=== PATIENT | male | born 1960 | race Caucasian/White ===

== ENCOUNTER 2022-07-13 16:11 | Emergency (ER) | payer OTHER, SELFPAY ==
[2022-07-13 16:53] VITALS: BP 228/101; RESP 18; TEMP 37.1; O2SAT 98; BMI 37.3
--- NOTE | 2022-07-13 17:26 | ED_ITS ---
HPI - Arrhythmia/Palpitations General Chief Complaint: Arrhythmia/Palpitations Stated Complaint: PVC's Time Seen by Provider: 07/13/22 17:07 History of Present Illness HPI narrative: 62-year-old man presenting to the emergency department in with concern of PVCs. Particularly when he lays down at night the last couple of nights it has felt increasingly heavy pulses into his head. No actual chest pain or shortness of breath. No lightheadedness. No cough cold symptoms no fever. Underlying history of PVCs for a long time but these are just more now, started to notice more over the last week or 2. Health history otherwise includes a history of brain surgery for a tumor. He had been seizure-free and off medications for years until this last April. Was started on Keppra but due to orneriness and other intolerance is being transitioned to lamotrigine; currently on both m edications for taper off Keppra and on to lamotrigine. Is not on any rate control medications. Only other medication is mirtazapine primarily for sleep believe. He has historically discontinued caffeine ingestion. 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 Last echo he thinks was last February. Pressures which he tends to measure on the forearm as does not typically read in the upper arm he says, at home were 180s over 120s. And pulse was reading a little over 40. Related Data Previous Rx's Medication Instructions Recorded metoprolol succinate 50 mg 50 mg PO DAILY #30 tabs 07/13/22 tablet,extended release 24 hr Allergies Allergy/AdvReac Type Severity Reaction Status Date / Time gluten Allergy Unknown Verified 07/13/22 16:56 onion Allergy Unknown Verified 07/13/22 16:56 Sulfa (Sulfonamide AdvReac Severe Anaphylaxis Verified 07/13/22 16:56 Antibiotics) Review of Systems Status of ROS: Reports: 10 or more systems reviewed and unremarkable except as noted in History and below Exam Narrative: Exam Narrative: Pleasant. NAD. Large tall man. Calm. Speaks in a slow and controlled manner. Breathing easily. Skin is warm and dry. No extremity edema. Well perfused. Lungs clear. Heart auscultates and palpates for between 30-40 per I think. Cranial nerves 2-12 look to be intact. Const: Vital Signs, click to edit/add: Vital Signs - 24 hr 07/13/22 16:53 07/13/22 17:48 07/13/22 18:00 Temperature 98.7 F Respiratory Rate 18 Blood Pressure [Ri ght Forearm] 228/101 H 205/101 H Pulse Oximetry 98 98 Oxygen Delivery Me thod Room Air 07/13/22 18:33 Temperature Respiratory Rate Blood Pressure [Ri ght Forearm] 187/120 H Pulse Oximetry Oxygen Delivery Me thod Documenting provider has reviewed patient's vital signs: yes Course Vital Signs Vital signs: Initial Vital Signs Temperature 98.7 F 07/13/22 16:53 Temperature Source Temporal Artery Scan 07/13/22 16:53 Respiratory Rate 18 07/13/22 16:53 Blood Pressure 228/101 H 07/13/22 16:53 Blood Pressure Mean 143 07/13/22 16:53 Blood Pressure Position Supine 07/13/22 16:53 Pulse Oximetry 98 07/13/22 16:53 Oxygen Delivery Method 07/13/22 16:53 Vital Signs Temperature 98.7 F 07/13/22 16:53 Respiratory Rate 18 07/13/22 16:53 Blood Pressure 228/101 H 07/13/22 16:53 Pulse Oximetry 98 07/13/22 16:53 Oxygen Delivery Method 07/13/22 16:53 Temperature 98.7 F 07/13/22 16:53 Respiratory Rate 18 07/13/22 16:53 Blood Pressure 187/120 H 07/13/22 18:33 Pulse Oximetry 98 07/13/22 17:48 Oxygen Delivery Method 07/13/22 16:53 MDM - Arrhythmia/Palpitations MDM Narrative 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 Continue to have rather elevated blood pressures and PVCs in bigeminy. Will hydrate see if we can slow this frequency down with IV fluids. And monitor for symptoms. Check electrolytes, TSH troponin. Also send out levels of Keppra and lamotrigine. Labs are reassuring. Repeat tropes are essentially flat. Normal proBNP. EKG reviewed by me does show frequent PVCs electrically at 85 with bigeminy. After full L is in. Frequency of his PVCs did diminish where he noted feeling 3 or 4 normal beats between them. Though slowly began to increase again in frequency. Blood pressures difficult to measure remained rather elevated. I did do a manual large cuff measurement which read 190/90 on the left arm. Concern of frequent PVCs might be development of cardiomyopathy. He did have an echocardiogram though done this last February. Reviewed this EKG and case with Cardiology. Recommending test dose of metoprolol and then if tolerated continuing outpatient with 48 hours of cardiac monitoring and echocardiogram. Tolerated 5 mg of metoprolol. Blood pressure came down to around 140/below 100 in relatively short order Pending yet are levels of lamotrigine and Keppra though probably not playing much of a role in this PVC frequency If pressures had not been rather elevated I would probably recommend just cardiac monitoring without metoprolol. Lab Data Attestation: I reviewed the patient's lab results. Labs: Lab Results 07/13/22 07/13/22 07/13/22 Range/Units 17:41 17:41 17:41 WBC 6.48 (4.50-11.00) K/uL RBC 5.23 (4.30-5.90) m/uL Hgb 15.0 (13.5-17.5) gm/dL Hct 44.0 (37.0-53.0) % MCV 84 (80-100) fL MCH 29 (26-34) pg MCHC 34 (32-36) gm/dL RDW Coeff of Jessica 13.4 (11.5-15.5) % Plt Count 158 (140-440) K/uL Neut % (Auto) 42.1 (42.0-72.0) % Lymph % (Auto) 46.6 H (20-44) % [place] % (Auto) 7.6 (0.0-11.0) % Eos % (Auto) 2.8 (0.0-7.0) % Baso % (Auto) 0.6 (0.0-3.0) % Neut # (Auto) 2.73 (1.7-7.0) K/uL Lymph # (Auto) 3.00 H (0.90-2.90) K/uL [place] # (Auto) 0.50 (0.00-0.90) K/UL Eos # (Auto) 0.18 (0.00-0.50) K/uL Baso # (Auto) 0.04 (0.00-0.30) K/uL Sodium 145 (135-149) mmol/L Potassium 4.1 (3.6-5.1) mmol/L Chloride 105 (96-114) mmol/L Carbon Dioxide 28 (20-32) mmol/L BUN 10 (7-30) mg/dL Creatinine 0.8 (0.5-1.5) mg/dL Estimated Creat Clear 107.78 Estimated GFR 101 ml/min Glucose 111 (60-115) mg/dL Calcium 7.7 L (8.4-10.6) mg/dL Magnesium 2.0 (1.5-2.6) mg/dL Total Bilirubin 0.6 (0.1-1.5) mg/dL Direct Bilirubin 0.2 (0.0-0.5) mg/dL AST 24 (12-35) U/L ALT 26 (4-50) U/L Alkaline Phosphatase 72 (40-150) U/L Troponin I 0.05 H (0.01-0.04) ng/mL C-Reactive Protein 0.5 (0.5-1.0) mg/dL NT-Pro-B Natriuret Pep 165 pg/mL Total Protein 8.1 (6.0-8.3) g/dL Albumin 4.8 (3.3-5.0) g/dL TSH (0.270-4.20) uIU/mL POC Troponin I (0.01-0.04) ng/ml 07/13/22 07/13/22 07/13/22 Range/Units 17:41 17:41 18:43 WBC (4.50-11.00) K/uL RBC (4.30-5.90) m/uL Hgb (13.5-17.5) gm/dL Hct (37.0-53.0) % MCV (80-100) fL MCH (26-34) pg MCHC (32-36) gm/dL RDW Coeff of Jessica (11.5-15.5) % Plt Count (140-440) K/uL Neut % (Auto) (42.0-72.0) % Lymph % (Auto) (20-44) % [place] % (Auto) (0.0-11.0) % Eos % (Auto) (0.0-7.0) % Baso % (Auto) (0.0-3.0) % Neut # (Auto) (1.7-7.0) K/uL Lymph # (Auto) (0.90-2.90) K/uL [place] # (Auto) (0.00-0.90) K/UL Eos # (Auto) (0.00-0.50) K/uL Baso # (Auto) (0.00-0.30) K/uL Sodium (135-149) mmol/L Potassium (3.6-5.1) mmol/L Chloride (96-114) mmol/L Carbon Dioxide (20-32) mmol/L BUN (7-30) mg/dL Creatinine (0.5-1.5) mg/dL Estimated Creat Clear Estimated GFR ml/min Glucose (60-115) mg/dL Calcium (8.4-10.6) mg/dL Magnesium (1.5-2.6) mg/dL Total Bilirubin (0.1-1.5) mg/dL Direct Bilirubin (0.0-0.5) mg/dL AST (12-35) U/L ALT (4-50) U/L Alkaline Phosphatase (40-150) U/L Troponin I (0.01-0.04) ng/mL C-Reactive Protein (0.5-1.0) mg/dL NT-Pro-B Natriuret Pep pg/mL Total Protein (6.0-8.3) g/dL Albumin (3.3-5.0) g/dL TSH 1.120 (0.270-4.20) uIU/mL POC Troponin I 0.01 0.02 (0.01-0.04) ng/ml Discharge Plan Discharge Clinical Impression: Frequent PVCs, High blood pressure Patient Disposition: Home w/ Parent or Adult Condition: Improved Additional Instructions: I think it is important to stay well hydrated. Generally we should aim for 2-3 L of water a day intake. This may help decrease the frequency of PVCs. For your rather elevated blood pressures though, I think probably it is also prudent to start metoprolol for blood pressure and to decrease the frequency hopefully of these PVCs. At this point the Holter monitor will monitor the frequency of the PVCs, admittedly potentially affected by the metoprolol, and follow up this result with your primary care provider after cardiology has a look at it. You're also recommended for a repeat echocardiogram although this might be a little premature given that you had one already in February. Please discuss with your primary care provider. Activity Level: No Restrictions Discharge Diet: Heart Healthy (2 gm sodium, low fat) Prescriptions: New metoprolol succinate 50 mg tablet extended release 24 hr 50 mg PO DAILY Qty: 30 0RF Follow Up/Referrals: Jeo Astudillo MD [Primary Care Provider] - Stand Alone Forms: [facility] Info Instructions Discharge Comment: holter monitor placed before discharge
[2022-07-13 17:47] LABS: Basophils Absolute Auto 0.04 K/uL (0.00-0.30); Basophils Percent Auto 0.6 % (0.0-3.0); Eosinophils Absolute Auto 0.18 K/uL (0.00-0.50); Eosinophils Percent Auto 2.8 % (0.0-7.0); Immature Granulocytes Abs Auto 0.02 K/uL (0.00-0.30); Immature Granulocytes Pct Auto 0.3 %; Lymphocytes Percent Auto 46.6 % (20-44); Mean Corpuscular HGB Conc 34 gm/dL (32-36); Mean Corpuscular Hemoglobin 29 pg (26-34); Mean Corpuscular Volume 84 fL (80-100); Monocytes Percent Auto 7.6 % (0.0-11.0); Neutrophils Absolute Auto 2.73 K/uL (1.7-7.0); Neutrophils Percent Auto 42.1 % (42.0-72.0); Platelet Count* 158 K/uL (140-440); RDW Coefficient of Variation % 13.4 % (11.5-15.5); Red Blood Count 5.23 m/uL (4.30-5.90); Slide Review Reflex No; White Blood Count* 6.48 K/uL (4.50-11.00)
[2022-07-13 17:48] VITALS: O2SAT 98
[2022-07-13 18:00] VITALS: BP 205/101
[2022-07-13 18:00] LABS: Chloride* 105 mmol/L (96-114)
[2022-07-13 18:01] LABS: Albumin* 4.8 g/dL (3.3-5.0); Potassium* 4.1 mmol/L (3.6-5.1); Sodium* 145 mmol/L (135-149)
[2022-07-13 18:03] LABS: Creatinine* 0.8 mg/dL (0.5-1.5); Est. Creatinine Clearance* 107.78; Estimated Glomerular Filt Rate 101 ml/min
[2022-07-13 18:04] LABS: Alanine Aminotransferase* 26 U/L (4-50); Alkaline Phosphatase* 72 U/L (40-150); Aspartate Amino Transferase* 24 U/L (12-35); Bilirubin Direct* 0.2 mg/dL (0.0-0.5); Bilirubin Total* 0.6 mg/dL (0.1-1.5); Blood Urea Nitrogen* 10 mg/dL (7-30); Carbon Dioxide* 28 mmol/L (20-32); Total Protein* 8.1 g/dL (6.0-8.3)
[2022-07-13 18:05] LABS: Calcium* 7.7 mg/dL (8.4-10.6); Glucose* 111 mg/dL (60-115)
[2022-07-13 18:07] LABS: C Reactive Protein* 0.5 mg/dL (0.5-1.0)
[2022-07-13 18:11] LABS: Troponin, Point-of-Care* 0.01 ng/ml (0.01-0.04)
[2022-07-13] MEDS: 0.9 % SODIUM CHLORIDE 1000 ml 1,000 ML IV (18:13)
[2022-07-13 18:16] LABS: Troponin I* 0.05 ng/mL (0.01-0.04)
[2022-07-13 18:23] LABS: NT Pro B Type NatriureticPept* 165 pg/mL
[2022-07-13 18:33] VITALS: BP 187/120
[2022-07-13 19:04] LABS: Troponin, Point-of-Care* 0.02 ng/ml (0.01-0.04)
[2022-07-13] MEDS: METOPROLOL TARTRATE 1 MG/ML inj 5 MG IVP (19:54)
[2022-07-13] MEDS: METOPROLOL SUCCINATE (XL) 50 MG TAB PO (20:43)
[2022-07-16 01:40] LABS: Keppra (Levetiracetam) 13 ug/mL (10-40); Lamotrigine <0.9 ug/mL (3.0-15.0)
== END 2022-07-13 21:24 | disposition home or self-care (01) ==
PROVIDERS: Emergency Provider Family Medicine; PCP Surgery
DX: I49.3 Ventricular premature depolarization (principal)
CPT/HCPCS: 36415; 80048; 80076; 80175; 80177; 83735; 83880; 84443; 84484; 85025; 86140; 93225; 93226; 94761; 99284; 99285; A9270; J7030

== ENCOUNTER 2022-09-29 07:00 | Outpatient (CLI) | payer OTHER, SELFPAY ==
--- NOTE | 2022-09-29 07:15 | CRLHL7_ITS ---
For Patients: As a result of the Century Cures Act, medical imaging exams and procedure reports are released immediately into your electronic medical record. You may view this report before your referring provider. If you have questions, please contact your health care provider. INDICATION: Back pain. Prior history disc herniation. TECHNIQUE : Lumbar spine MRI without contrast. The following sequences were obtained: Sagittal T1, T2 weighted and STIR sequences. Axial T1 and T2 weighted sequences. COMPARISON: Lumbar spine MRI from 06/25/2020. FINDINGS : Five lumbar type vertebral bodies, with the last fully formed disc space designated as L5-S1. Straightening of the typical lumbar lordosis. Mild levoconvex lumbar curve. No recent compression fracture or marrow replacing process. Lower cord/conus signal is normal. The conus terminates at a normal location. No intradural lesion. No extraspinal soft tissue abnormalities. Discs/Endplates: Mild disc height loss and disc desiccation at L5-S1. Disc desiccation at L2-3, L3-4 and L4-5. Remaining discs are within normal limits. 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 Findings at individual levels as follows: T12-L1: A small left central protrusion flattens the thecal sac. No spinal canal or neural foraminal stenosis. L1-2: No spinal canal or neural foraminal stenosis. L2-3: Mild disc bulge and a shallow right central protrusion component containing an annular fissure. Bilateral facet arthrosis. Moderate spinal canal stenosis. Mild bilateral foraminal stenosis. L3-4: 7 millimeters grade 1 anterolisthesis. Severe disc unroofing and superimposed moderate disc bulge with right central protrusion component. High-grade bilateral facet arthrosis/ligamentum flavum thickening. With advanced spinal canal stenosis and subarticular recess stenosis with further focal impingement of the traversing L4 nerve roots. Mild oblique neural foraminal stenosis. L4-5: Trace retrolisthesis. Mild disc bulge with superimposed shallow central protrusion component with annular fissure. Bilateral facet arthrosis. Moderate spinal canal stenosis and bilateral subarticular recess stenosis with encroachment of the traversing L5 nerve roots. Mild bilateral foraminal stenosis. L5-S1: A 10 millimeter left central/subarticular disc protrusion with annular fissure impinges the traversing left S1 nerve root. Right-sided facet arthrosis. Mild bilateral foraminal stenosis and mild spinal canal stenosis. Imaged SI joints: Bilateral arthrosis. Imaged sacrum: Within normal limits. IMPRESSION: 1. No significant progression of spondylosis when compared to 2020 MRI. 2. At L3-4, advanced spinal canal stenosis and subarticular recess stenosis with resulting impingement of the traversing L4 nerve roots. This is due to grade 1 anterolisthesis/high-grade facet arthrosis and ligamentum flavum thickening, as well as congenital spinal canal narrowing. Stable. 3. At L4-5, moderate spinal canal stenosis and bilateral subarticular recess stenosis with encroachment of the traversing L5 nerve roots. Slightly improved. 4. At L5-S1, left central/subarticular protrusion with annular fissure impinges the traversing left S1 nerve root. Stable. Dictated by Sean Goodwin MD @ 09/29/2022 12:45:33 PM (Electronically Signed)
== END 2022-09-29 07:01 | disposition home or self-care (01) ==
PROVIDERS: PCP Surgery; Visit Provider Family Medicine
DX: M54.9 Dorsalgia, unspecified (principal); M48.061 Spinal stenosis, lumbar region without neurogenic claudication; M51.27 Other intervertebral disc displacement, lumbosacral region; M51.26 Other intervertebral disc displacement, lumbar region; M54.17 Radiculopathy, lumbosacral region
CPT/HCPCS: 72148

== ENCOUNTER 2023-07-31 09:08 | Outpatient (CLI) | payer OTHER, SELFPAY ==
--- NOTE | 2023-07-31 11:00 | W.ANESCHARGE ---
Anesthesia Charges Start Date/Time Anesthesia Start Date: 07/31/23 Anesthesia Start Time: 10:30 Stop Date/Time Anesthesia Stop Date: 07/31/23 Anesthesia Stop Time: 11:00
--- NOTE | 2023-07-31 11:09 | W.ANESCHARGE ---
Anesthesia Charges Start Date/Time Anesthesia Start Date: 07/31/23 Anesthesia Start Time: 10:30 Stop Date/Time Anesthesia Stop Date: 07/31/23 Anesthesia Stop Time: 11:00
== END 2023-07-31 09:09 | disposition home or self-care (01) ==
LOC: OP CLINIC 09:08
PROVIDERS: PCP Surgery; Visit Provider Internal Medicine Gastroenterology
DX: Z12.11 Encounter for screening for malignant neoplasm of colon (principal); K63.5 Polyp of colon
CPT/HCPCS: 00811; 45380; 88305; J2704